=== PATIENT | male | born 1990 | race Hispanic/Latino ===

== ENCOUNTER 2024-05-31 13:52 | Emergency (ER) | payer SELFPAY ==
[2024-05-31] MEDS ORDERED: acetaMINOPHEN/coDEINE 120/12MG 5ML PO PRN (14:00)
[2024-05-31 14:46] LABS: RAPID GROUP A STREP negative (NEGATIVE)
[2024-05-31 14:50] LABS: SARS-CoV-2, RNA, NAAT NEGATIVE SARS CoV-2 (NEGATIVE)
[2024-05-31 14:57] LABS: INFLUENZA TYPE A Negative For Type A (NEGATIVE); INFLUENZA TYPE B Negative For Type B (NEGATIVE)
[2024-05-31 15:10] VITALS: BP 157/80; PULSE 67; RESP 18; TEMP 98.8; O2SAT 100
[2024-05-31] MEDS ORDERED: ACET500P24 PO (15:11)
[2024-05-31] MEDS ORDERED: AMOX1TAB16 PO (15:11)
[2024-05-31] MEDS ORDERED: FLUT16H NASAL (15:11)
== END 2024-05-31 15:36 | disposition home or self-care (01) ==
LOC: EDH 13:52
DX: J32.9 Chronic sinusitis, unspecified (principal); M79.18 Myalgia, other site; R07.89 Other chest pain; Z20.822 Contact with and (suspected) exposure to COVID-19
CPT/HCPCS: 71045; 87635; 87804; 87880; 93005

== ENCOUNTER 2025-02-13 13:51 | Emergency (ER) | payer SELFPAY ==
[~2025-02-13] VITALS: Ht 165.1 cm; Wt 86.2 kg
[~2025-02-13 13:51] MED LIST: ACET500P24 PO; AMOX1TAB16 PO; FLUT16H NASAL
[2025-02-13 14:58] LABS: RAPID GROUP A STREP negative (NEGATIVE)
[2025-02-13 15:08] LABS: COVID19 (SARS ANTIGEN RAPID) PRESUMPTIVE NEGATIVE (NEGATIVE); INFLUENZA TYPE A Negative For Type A (NEGATIVE); INFLUENZA TYPE B Negative For Type B (NEGATIVE)
--- NOTE | 2025-02-13 15:37 | HMCIMG ---
Exam Type: CHEST 1VW Clinical Information: cough Comparison: None Findings: The lungs are clear of infiltrates. The heart is normal in size. The bony and soft tissue structures of the chest are unremarkable. Impression: Clear lungs.
[2025-02-13] MEDS: dexaMETHasone SOD PHOSPHATE 4 MG/ML 1ML VIAL IM ONE (16:34)
[2025-02-13 16:49] VITALS: BP 148/85; PULSE 71; RESP 18; TEMP 98.4; O2SAT 99
[2025-02-13] MEDS ORDERED: FLUT15.845 NS (16:52)
[2025-02-13] MEDS ORDERED: AZIT250T9 PO (16:52)
--- NOTE | 2025-02-13 16:53 | ERN ---
General Chief Complaint: Cough Stated Complaint: COUGH,CONGESTION,SOB,FATIGUE/ 3 DAYS Time Seen by MD: 13:53 Time Seen by Midlevel: 13:53 Source: patient History of Present Illness Initial Comments 34-year-old male who presents to the emergency department due to flu-like symptoms onset three days. Patient reports cough, sore throat, congestion, fatigue, body aches, shortness of breath. Denies any fever, chest pain, abdominal pain, vomiting, diarrhea or further associated symptoms. Denies significant past medical history. Allergies: Coded Allergies: No Known Drug Allergies (Unverified Allergy, Unknown, 05/31/24) Home Meds Active Scripts Fluticasone Propionate (Fluticasone Propionate) 50 Mcg/Actuation [place].susp, 2 SPRAY NS DAILY, #16 GM 0 Refills Prov:MIKAYLA DOTY 02/13/25 Azithromycin (Azithromycin) 250 Mg Tablet, 1 TAB PO AD for 5 Days, #6 TAB 0 Refills 2 the first day followed by 1 for days 2-5 Prov:MIKAYLA DOTY 02/13/25 Fluticasone Propionate (Flonase Nasal [place]) 50 Mcg/Actuation [place], 50 MCG NASAL TID for 7 Days, #60 SPRAY Prov:ATUL NAVAS MD 05/31/24 Acetaminophen (Tylenol Extra Strength) 500 Mg Powd.pack, 500 MG PO q6 for 5 Days, #30 TAB Prov:ATUL NAVAS MD 05/31/24 Amoxicillin/Potassium Clav (Amox Tr-K Clv 875-125 mg Tab) 875 Mg-125 Mg Tablet, 1 EACH PO BID for 7 Days, #14 TAB Prov:ATUL NAVAS MD 05/31/24 Past Medical History Past Medical History: No Pertinent History Past Surgical History: None ROS Dictation Constitutional: Positive for fatigue, body aches Negative for chills, and tono ght loss Eyes: Negative for injury, pain,redness, and discharge ENT: Positive for congestion, sore throat Negative for injury,pain or swelling Cardiovascular: Negative for chest pain, palpitations, and edema Respiratory: Positive for cough, SOB Negative for wheezing, Abdomen/GI: Negative for abdominal pain, nausea, vomiting, diarrhea, and constipation Back: Negative for injury and pain : Negative for painful urination, bleeding or discharge MS/Extremity: Negative for injury and deformity Skin: Negative for rash, and discoloration Neuro: Negative for headache, weakness, numbness, tingling, and seizure Psych: Negative for suicide ideation, homicidal ideation, and hallucinations Physical Exam Physical Exam Dictation General: awake, alert, no acute distress Head/Face: Normocephalic, atraumatic Eyes: PERRL, EOMI, normal conjunctiva ENT: oral cavity clear, TMs clear, oral mucosa moist Neck: Supple, normal range of motion Cardiovascular: RRR, normal S1/S2 Respiratory: CTAB, no respiratory distress, no rales or wheezes Abdomen: Soft, non-tender, non-distended, no guarding or rebound. Skin: Warm, dry, normal turgor, no rash MS/Extremity: Pulses equal, no cyanosis, neurovascular intact, FROM Neuro: COAx4, GCS 15, strength 5/5, CN 2-12 intact, normal cerebellar exam, normal gait Psych: Normal behavior, mood, and affect normal Results Laboratory and Microbiology Lab and Micro Result Laboratory Tests Test 02/13/25 14:31 Influenza Type A Antigen Negative For Type A Influenza Type B Antigen Negative For Type B SARS-CoV-2 Antigen (Rapid) PRESUMPTIVE NEGATIVE Group A Streptococcus Rapid negative (NEGATIVE) Labs Reviewed?: Yes MDM MDM: Differential diagnosis: Viral illness, URI, pneumonia Rationale: 34-year-old male who presents to the emergency department due to flu- like symptoms onset three days. Patient reports cough, congestion, fatigue, shortness of breath. Denies any fever, chest pain, abdominal pain, vomiting, diarrhea or further associated symptoms. Denies significant past medical history. Per physical examination patient is in no acute distress, nonlabored breathing, nontoxic appearing. Vitals within normal limits during ED course. SARs, influenza, strep negative. The patient was educated on findings and diagnosis. Advised to follow up with PCP. Return to the emergency department if any worsening symptoms. Patient verbalized understanding. Patient stable for discharge. There are no social concerns with this patient. I independently interpreted the test that were performed, results were reviewed by me and considered findings on radiology if ordered. Medical management and examination interpretation discussions were had by me with other qualified healthcare professionals as indicated for the patient's care. ED Course Orders Procedure Category Date Status Time Covid19 (Sars Antigen LAB 02/13/25 Complete Rapid) 14:32 Influenza Type A & B, LAB 02/13/25 Complete Rapid 14:32 Rapid (Group A Strep) LAB 02/13/25 Complete 14:32 Chest 1vw RAD 02/13/25 Resulted 14:32 Dexamethasone 4mg/Ml PHA 02/13/25 Complete 1ml Vial (Dexametha 16:00 Current Medications Medications (Trade) Dose Ordered Sig/Rupinder Route PRN Reason Start Time Stop Time Status Last Admin Dose Admin Dexamethasone Sodium Phosphate (dexaMETHasone 4MG/ML 1ML VIAL) 4 mg ONCE ONCE IM 02/13/25 16:00 02/13/25 16:02 DC 02/13/25 16:34 Vital Signs Date Time Temp Pulse Resp B/P (MAP) Pulse Ox O2 Delivery O2 Flow Rate FiO2 02/13/25 16:49 98.4 71 18 148/85 99 Room Air* 0 21 02/13/25 14:26 84 16 153/101 98 Room Air 0 DX & DISP Disposition: Discharge Departure Impression: Primary Impression: URI (upper respiratory infection) Condition: Stable Scripts Fluticasone Propionate (Fluticasone Propionate) 50 Mcg/Actuation [place].susp 2 SPRAY NS DAILY, #16 GM 0 Refills Prov: MIKAYLA DOTY 02/13/25 Azithromycin (Azithromycin) 250 Mg Tablet 1 TAB PO AD for 5 Days, #6 TAB 0 Refills 2 the first day followed by 1 for days 2-5 Prov: MIKAYLA DOTY 02/13/25 Additional Instructions: Discharge home. Rest. Follow up with primary care DrMartita in 24 hours. Return to the ER for any acute changes or worsening symptoms. If any medications were prescribed take as directed. Okay to continue home medications unless otherwise discussed during your visit in the emergency room today. Patient was also advised to follow-up with primary care physician in 1 to 2 days for continued monitoring. Referrals: SHOAIB ZHONG MD (PCP) I performed the substantive portion of the visit. I have reviewed and personally made and approve the management plan that is documented in the notes by myself or the NALLELY. I acknowledge full responsibility for the patient's management plan. MIKAYLA DOTY February 13, 2025 16:53
== END 2025-02-13 17:39 | disposition home or self-care (01) ==
LOC: EDH 13:51
DX: J06.9 Acute upper respiratory infection, unspecified (principal); Z20.822 Contact with and (suspected) exposure to COVID-19
CPT/HCPCS: 99284; 71045; 87426; 87880; 87804 ×2; 96372; J1100

== ENCOUNTER 2025-08-19 20:30 | Emergency (ER) | payer SELFPAY ==
[~2025-08-19] VITALS: Ht 152.4 cm; Wt 86.2 kg
[~2025-08-19 20:30] MED LIST changes: +AZIT250T9 PO; +FLUT15.845 NS
--- NOTE | 2025-08-19 20:59 | NUR ---
PT IN LOBBY, PENDING LABS, IV SITE, AND CONSENT
[2025-08-19 21:36] LABS: IMMATURE GRANULOCYTE ABSOLUTE 0.03 K/uL (0-1); NUCLEATED RED BLOOD CELLS 0.0 % (0.0-0.19); PLATELET COUNT (AUTO) 224 K/uL (130-400); RED BLOOD CELL COUNT(AUTO) 4.81 MIL/uL (4.50-6.20); RED CELL DISTRIBUTION WIDTH 12.5 % (11.0-15.5); WHITE BLOOD COUNT (AUTO) 8.0 K/uL (4.8-10.8)
[2025-08-19 21:44] LABS: CREATININE 0.8 mg/dL (0.5-1.3); GLOMERULAR FILTR. RATE CALC 118.0 mL/min (>90); GLUCOSE,RANDOM 102.0 mg/dL (70-105); SODIUM SERUM 137.0 mmol/L (136-145); UREA NITROGEN, BLOOD 14.0 mg/dL (7-18)
--- NOTE | 2025-08-19 21:50 | NUR ---
UA COLLECTED AND SENT
[2025-08-19 22:14] LABS: APPEARANCE,URINE CLEAR (CLEAR); GLUCOSE, URINE (UA) NEGATIVE (NEGATIVE); LEUKOCYTE ESTERASE ,URINE NEGATIVE Leu/uL (NEGATIVE); NITRATE,URINE NEGATIVE (NEGATIVE); OCCULT BLOOD,URINE NEGATIVE (NEGATIVE)
[2025-08-19 22:17] LABS: ADD UA MICROSCOPIC NO
[2025-08-19] MEDS: 0.9%NACL 1000ML 1,000 ML IV ONE (22:18)
--- NOTE | 2025-08-19 22:40 | ERN ---
ED Note History of Present Illness Stated Complaint: FALL, BACK , RT LEG PAIN Chief Complaint: Mechanical Fall Time Seen by MD: 20:38 Time Seen by Midlevel: 20:38 Dictation: The patient is a 35-year-old male with no significant past medical history who presents to the emergency department with complaints of right flank pain after a fall just prior to arrival. Patient reports he was going down two steps when he slipped due to the rain causing him to fall on his right side. Patient reports pain radiates down his right leg. Denies any numbness to lower extremities. Denies any head trauma, neck pain or any other injuries from the fall. Allergies: Coded Allergies: No Known Drug Allergies (Unverified Allergy, Unknown, 05/31/24) Home Meds Active Scripts Fluticasone Propionate (Fluticasone Propionate) 50 Mcg/Actuation [place].susp, 2 SPRAY NS DAILY, #16 GM 0 Refills Prov:MIKAYLA DOTY 02/13/25 Azithromycin (Azithromycin) 250 Mg Tablet, 1 TAB PO AD for 5 Days, #6 TAB 0 Refills 2 the first day followed by 1 for days 2-5 Prov:MIKAYLA DOTY 02/13/25 Fluticasone Propionate (Flonase Nasal [place]) 50 Mcg/Actuation [place], 50 MCG NASAL TID for 7 Days, #60 SPRAY Prov:ATUL NAVAS MD 05/31/24 Acetaminophen (Tylenol Extra Strength) 500 Mg Powd.pack, 500 MG PO q6 for 5 D ays, #30 TAB Prov:ATUL NAVAS MD 05/31/24 Amoxicillin/Potassium Clav (Amox Tr-K Clv 875-125 mg Tab) 875 Mg-125 Mg Tablet, 1 EACH PO BID for 7 Days, #14 TAB Prov:ATUL NAVAS MD 05/31/24 Past Medical History Past Medical History: No Pertinent History Surgical History: None RN Note Reviewed/Agreed w/PFSH: Yes Review of System Dictation Constitutional: Negative for fever,chills, and weight loss Eyes: Negative for injury, pain,redness, and discharge ENT: Negative for injury,pain or swelling Cardiovascular: Negative for chest pain, palpitations, and edema Respiratory: Negative for shortness of breath, cough, and wheezing, Abdomen/GI: Negative for abdominal pain, nausea, vomiting, diarrhea, and constipation Back: Positive for right flank pain : Negative for injury, bleeding and discharge MS/Extremity: Negative for injury and deformity Skin: Negative for rash, and discoloration Neuro: Negative for headache, weakness, numbness, tingling, and seizure Psych: Negative for suicide ideation, homicidal ideation, and hallucinations Initial Vital Sign VS Vital Signs Date Time Temp Pulse Resp B/P (MAP) Pulse Ox O2 Delivery O2 Flow Rate FiO2 08/19/25 20:31 97.9 108 20 152/88 99 Room Air 08/20/25 00:05 0 21 Physical Exam Dictation Vital Signs reviewed General Appearance: Alert, oriented x 3, no acute distress, well developed, nourished. Head and Face: non-traumatic. Eyes: PERRL, pink conjunctivas, eyelid no trauma, anterior chamber with arcus senilis. Ears: Pinnas intact and no signs of trauma or erythema ear canals clear and no discharge TM no erythema Nose: No discharge, no bleeding. Oropharynx: Mouth normal, tongue pink. pharynx clear,no erythema, tonsils no exudates, no abscesses noted, mucous membrane moist Neck: Supple, non-tender, no thyromegaly, no masses, no JVD, no bruits Breast:Deferred Chest:No tenderness, no crepitus, no paradoxical movement, no retractions Lungs:Clear, well-ventilated, symmetric, no rales, no wheezing, no rhonchi, no stridor, good breath sounds bilaterally Heart: Regular rate, regular rhythm, no murmur, no gallops Vascular: no peripheral edema, dorsalis pedis 3+ bilaterally Abdomen: Soft, positive bowel sounds, nondistended, no guarding, nontender, no rebound, no masses no hepatomegaly, no splenomegaly, no Laughlin's sign, no hernias. Rectal: Deferred Genital: Deferred Neurological: Normal speech, motor function intact, sensory function intact Musculoskeletal: Neck nontender, full range of motion, back nontender, full range of motion, Extremities: nontender, full range of motion Skin: Color pink, dry, no turgor, no rash, no lacerations, no contusions. Large abrasion to right flank area about 10 cm in length, no active bleeding Lymphatic: Deferred Results (Laboratory/Radiology) Laboratory/Radiology Laboratory Tests Test 08/19/25 21:06 08/19/25 21:50 White Blood Count 8.0 K/uL (4.8-10.8) Red Blood Count 4.81 MIL/uL (4.50-6.20) Hemoglobin 14.8 g/dL (14.0-18.0) Hematocrit 43.4 % (42-54) Mean Corpuscular Volume 90.2 fL (79-99) Mean Corpuscular Hemoglobin 30.8 pg (27.0-33.0) Mean Corpuscular Hemoglobin Concent 34.1 g/dL (32.0-36.0) Red Cell Distribution Width 12.5 % (11.0-15.5) Platelet Count 224 K/uL (130-400) Mean Platelet Volume 9.4 fL (7.5-10.5) Immature Granulocyte % (Auto) 0.4 % (0-1) Neutrophils (%) (Auto) 61.5 % (40.0-77.0) Lymphocytes (%) (Auto) 26.8 % (21.0-51.0) Monocytes (%) (Auto) 8.9 % (3.0-13.0) Eosinophils (%) (Auto) 1.9 % (0.0-8.0) Basophils (%) (Auto) 0.5 % (0.0-5.0) Neutrophils # (Auto) 4.9 K/uL (1.8-7.7) Lymphocytes # (Auto) 2.1 K/uL (1.0-4.8) Monocytes # (Auto) 0.7 K/uL (0.1-1.0) Eosinophils # (Auto) 0.15 K/uL (0.00-0.70) Basophils # (Auto) 0.04 K/uL (0.00-0.20) Absolute Immature Granulocyte (auto 0.03 K/uL (0-1) Nucleated Red Blood Cells 0.0 % (0.0-0.19) Sodium Level 137 mmol/L (136-145) Potassium Level 3.8 mmol/L (3.5-5.1) Chloride Level 100 mmol/L (101-111) L Carbon Dioxide Level 25 mmol/L (21-32) Blood Urea Nitrogen 14 mg/dL (7-18) Creatinine 0.8 mg/dL (0.5-1.3) Glomerular Filtration Rate Calc 118 mL/min (>90) Random Glucose 102 mg/dL (70-105) Total Calcium 9.1 mg/dL (8.5-10.1) Urine Color LIGHT-YELLOW (YELLOW) Urine Appearance CLEAR (CLEAR) Urine pH 5.5 (5.0-8.0) Urine Specific [place] 1.021 (1.001-1.031) Urine Protein NEGATIVE mg/dL (NEGATIVE) Urine Glucose (UA) NEGATIVE mg/dL (NEGATIVE) Urine Ketones NEGATIVE mg/dL (NEGATIVE) Urine Occult Blood NEGATIVE (NEGATIVE) Urine Nitrate NEGATIVE (NEGATIVE) Urine Bilirubin NEGATIVE mg/dL (NEGATIVE) Urine Urobilinogen 0.2 mg/dL (0.2-1.0) Urine Leukocyte Esterase NEGATIVE [place]/uL REASON: right flank pain s/p fall ORDERING PHYSICIAN: DANNY PINEDA PROCEDURE: ABD PEL W - CT ABDOMEN/PELVIS W/CONTRAST ADDENDUM REPORT ADDENDUM: Results were shared by telephone at 01:44 AM EST on 08-20-25 and acknowledged by CLAY MINER, Yeni Le. /[place] EXAM: CT Abdomen and Pelvis with IV contrast CLINICAL HISTORY: Right flank pain, status post fall. TECHNIQUE: Axial computed tomography images of the abdomen and pelvis with intravenous contrast. CONTRAST: with intravenous contrast. COMPARISON: None provided. FINDINGS: LUNG BASES: Bibasilar atelectasis. No pleural effusion. LIVER: Unremarkable. GALLBLADDER AND BILE DUCTS: The gallbladder appears within normal limits. No radioopaque gallstones are seen. No biliary ductal dilatation is evident. PANCREAS: Unremarkable. SPLEEN: Unremarkable. ADRENAL GLANDS: Unremarkable. KIDNEYS, URETERS, AND BLADDER: The kidneys appear within normal limits. There is no hydronephrosis or hydroureter. No urinary calculi are seen. STOMACH AND BOWEL: Unremarkable appearance of the stomach and bowel. No evidence of bowel obstruction. No evidence suggesting enteritis or colitis. Mild scattered colonic diverticula. APPENDIX: No evidence of acute appendicitis on CT examination. PERITONEUM: No free fluid. No free air. LYMPH NODES: No lymphadenopathy is evident. REPRODUCTIVE: Unremarkable as visualized. VASCULATURE: No evidence of abdominal aortic aneurysm. BONES: Right L1 and L2 transverse process fractures with distal end displacement. Right L3 transverse process fracture, nondisplaced. Mild lumbar spine degenerative changes. ABDOMINAL WALL: Bilateral fat-containing inguinal hernias. Small umbilical hernia with an approximately 0.8 cm defect. IMPRESSION: Right L1 and L2 displaced transverse process fractures. Right L3 nondisplaced transverse process fracture. Recommend orthopedic or spine surgery consultation, and further imaging with MRI lumbar spine may be considered Mild hepatic steatosis. /[place] Labs Reviewed?: Yes ED Course ED Course Orders Procedure Category Date Status Time Cbc With Differential LAB 08/19/25 Complete 20:42 Ct Abdomen/Pelvis CT 08/19/25 Resulted W/Contrast 20:42 Basic Metabolic Panel LAB 08/19/25 Complete 20:42 Morphine 4mg Syg PHA 08/19/25 Complete (Morphine 4mg Syg) 21:00 Ondansetron 4mg Inj PHA 08/19/25 Complete (Zofran 4mg Inj) 21:00 0.9%Nacl 1000ml (Ns PHA 08/19/25 Complete 1000ml) 21:00 Wound Care (Er) CPOE 08/19/25 Transmitted 20:51 Urinalysis Profile LAB 08/19/25 Complete 21:04 Orphenadrine Citrate PHA 08/19/25 Complete (Norflex) 23:30 Ketorolac PHA 08/19/25 Complete Tromethamine 30mg/Ml 23:30 Iohexol (Omnipaque) PHA 08/19/25 Complete 23:16 Current Medications Medications (Trade) Dose Ordered Sig/Rupinder Route PRN Reason Start Time Stop Time Status Last Admin Dose Admin Iohexol (Omnipaque) 75 ml STK-MED ONCE IV 08/19/25 23:16 08/19/25 23:16 DC Ketorolac Tromethamine (toRADol) 30 mg ONCE ONCE IVP 08/19/25 23:30 08/19/25 23:31 DC 08/19/25 23:51 Morphine Sulfate (morPHINE 4MG SYG) 4 mg ONCE ONCE IVP 08/19/25 21:00 08/19/25 21:01 DC 08/19/25 22:19 Ondansetron HCl (zoFRAN 4MG INJ) 4 mg ONCE ONCE IVP 08/19/25 21:00 08/19/25 21:01 DC 08/19/25 22:18 Orphenadrine Citrate (Norflex) 60 mg ONCE ONCE IM 08/19/25 23:30 08/19/25 23:31 DC 08/19/25 23:51 Sodium Chloride 1,000 ml @ 0 mls/hr ONCE ONCE IV 08/19/25 21:00 08/19/25 21:01 DC 08/19/25 22:18 Vital Signs Date Time Temp Pulse Resp B/P (MAP) Pulse Ox O2 Delivery O2 Flow Rate FiO2 08/20/25 00:41 98.2 69 18 122/62 99 Room Air* 0 21 08/20/25 00:05 98.2 71 18 135/78 95 Room Air* 0 21 08/19/25 20:31 97.9 108 20 152/88 99 Room Air Medical Decision Making MDM MDM: The patient is a 35-year-old male with no significant past medical history who presents to the emergency department with complaints of right flank pain after a fall just prior to arrival. Patient reports he was going down two steps when he slipped due to the rain causing him to fall on his right side. Patient reports pain radiates down his right leg. Denies any numbness to lower extremities. Denies any head trauma, neck pain or any other injuries from the fall. Patient reports up-to-date with tetanus CBC showed no leukocytosis, no anemia, chemistry showed no electrolyte imbalance, urinalysis unremarkable. CT abdomen and pelvis showed right L1 and L2 displaced transfer process fractures right L3 nondisplaced transfer process fractures. Patient's pain was controlled but still is having a lot of pain with ambulation. Patient otherwise neurovascularly intact, no urinary or fecal incontinence, no numbness to lower extremities. Patient able to move lower legs with some discomfort. Patient will be transfer for further evaluation and higher level of care. Spoke to trauma surgeon Dr. Avalos at [facility] who accepts transfer for pain management and physical therapy and further evaluation. Differential diagnosis: Back contusion, back strain, kidney laceration, lumbar fracture Comorbidities: None Tests considered and not ordered secondary to shared decision making include: none Previous outside records reviewed: none Risk of complication and/or morbidity or mortality of patient management: The patient meets criteria for transfer Need for emergency major/minor surgery: No There are no social concerns with this patient. I independently interpreted the tests I ordered (labs, urinalysis, etc.). I discussed the case with the ER physician for transfer , accepts transfer I discussed the case with the following specialists: Trauma surgeon Dr. Avalos [facility] Historian: ale. I independently interpreted imaging studies and EKGs that I ordered (US, CT, XR, EKG, etc.). External chart review: none. Medical management and examination interpretation discussions were had by me with other qualified healthcare professionals as indicated for the patient's care. DX & DISP Disposition: Transfer Decision to Admit Date: Aug 20, 2025 Decision to Admit Time: 02:48 Departure Impression: Primary Impression: L1 vertebral fracture Additional Impressions: L2 vertebral fracture, L3 vertebral fracture, Fall, Contusion of right flank Condition: Stable Referrals: SHOAIB ZHONG MD (PCP) DANNY PINEDA IC ENGINEER Aug 19, 2025 22:40
[2025-08-19] MEDS ORDERED: IOHEXOL-350 75 ML VIAL IV ONE (23:16)
[2025-08-19] MEDS: ORPHENADRINE 60MG/2ML IM ONE (23:51)
--- NOTE | 2025-08-20 00:37 | HMCIMG ---
EXAM: CT Abdomen and Pelvis with IV contrast CLINICAL HISTORY: Right flank pain, status post fall. TECHNIQUE: Axial computed tomography images of the abdomen and pelvis with intravenous contrast. CONTRAST: with intravenous contrast. COMPARISON: None provided. FINDINGS: LUNG BASES: Bibasilar atelectasis. No pleural effusion. LIVER: Unremarkable. GALLBLADDER AND BILE DUCTS: The gallbladder appears within normal limits. No radioopaque gallstones are seen. No biliary ductal dilatation is evident. PANCREAS: Unremarkable. SPLEEN: Unremarkable. ADRENAL GLANDS: Unremarkable. KIDNEYS, URETERS, AND BLADDER: The kidneys appear within normal limits. There is no hydronephrosis or hydroureter. No urinary calculi are seen. STOMACH AND BOWEL: Unremarkable appearance of the stomach and bowel. No evidence of bowel obstruction. No evidence suggesting enteritis or colitis. Mild scattered colonic diverticula. APPENDIX: No evidence of acute appendicitis on CT examination. PERITONEUM: No free fluid. No free air. LYMPH NODES: No lymphadenopathy is evident. REPRODUCTIVE: Unremarkable as visualized. VASCULATURE: No evidence of abdominal aortic aneurysm. BONES: Right L1 and L2 transverse process fractures with distal end displacement. Right L3 transverse process fracture, nondisplaced. Mild lumbar spine degenerative changes. ABDOMINAL WALL: Bilateral fat-containing inguinal hernias. Small umbilical hernia with an approximately 0.8 cm defect. IMPRESSION: Right L1 and L2 displaced transverse process fractures. Right L3 nondisplaced transverse process fracture. Recommend orthopedic or spine surgery consultation, and further imaging with MRI lumbar spine may be considered Mild hepatic steatosis. /[place]
--- NOTE | 2025-08-20 00:42 | NUR ---
PT REPORTS PAIN HAS IMPROVED, STILL FEELS PAIN TO RIGHT SIDE TRAVELING DOWN HIS LEG BUT IS ABLE TO MOVE LOWER EXTREMITY MORE FREELY.
--- NOTE | 2025-08-20 01:13 | NUR ---
PATIENT CARE ASSUMED AT THIS TIME
--- NOTE | 2025-08-20 01:23 | NUR ---
TRANSFER CALL PLACED TO [facility] TO INITIATE TRANSFER OF TRAUMA PATIENT.
[2025-08-20 03:20] VITALS: BP 125/72; PULSE 74; RESP 18; TEMP 98.4; O2SAT 98
--- NOTE | 2025-08-20 03:23 | NUR ---
[facility] HERE FOR PATIENT
== END 2025-08-20 03:25 | disposition short-term general hospital (02) ==
LOC: EDH 20:30
DX: S32.018A Other fracture of first lumbar vertebra, initial encounter for closed fracture (principal); S32.028A Other fracture of second lumbar vertebra, initial encounter for closed fracture; S32.038A Other fracture of third lumbar vertebra, initial encounter for closed fracture; S30.13XA Contusion of flank (latus) region, initial encounter; W10.8XXA Fall (on) (from) other stairs and steps, initial encounter; Y93.89 Activity, other specified; Y92.89 Other specified places as the place of occurrence of the external cause; Y99.8 Other external cause status
CPT/HCPCS: 99285; 74177; 96374; 96375; 80048; 85025; 81003; 36415; 96372; J1885; J7030; J2405; J2270; Q9967; J2360